=== PATIENT | female | born 1965 | race Caucasian/White ===

== ENCOUNTER → 2016-12-23 | Outpatient (CLI) | payer OTHER ==
--- NOTE | ~2016-12-23 | P ---
[facility] [place] [address] PROCEDURE REPORT Name: INGRID GÓMEZ Danyell Room #: REG RICHARD Galarza#: [id number] Admission: 12/23/16 Attend Phys: Torey Martinez Discharge: Date of : 67 Report #: [id number] THIS REPORT FOR: //name// CC: Torey Weller DO DATE OF SERVICE: 12/23/2016 PROCEDURE PERFORMED: Flexible sigmoidoscopy with tattoo. HISTORY OF PRESENT ILLNESS: The patient is a 51-year-old female who presented on 10/21/2016 for a routine screening colonoscopy. No family history of colon cancer. In the sigmoid colon at 40 cm from the anus, a large pedunculated polyp, which was approximately 2.5 cm was noted. This was removed by snare cautery, diffuse melanosis coli was also noted throughout the entire colon at that time. 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 No definitive lymphovascular space identified. The cauterized stalk margin was widely free of dysplasia, unremarkable mucosa present for 9 mm in the stalk. I had a long discussion with the patient at that time regarding the pathology findings. Since there was no invasion in the stalk, the plan was to bring her back and repeat a flexible sigmoidoscopy today for further evaluation. She denies any symptoms. DESCRIPTION OF PROCEDURE: The risks and benefits of the procedure were explained to the patient, those risks including but not limited to bleeding, perforation, the risk of sedation. She understood these risks and gave informed consent. Sedation was given using propofol per anesthesia. Next, a digital rectal exam was initially performed, which was normal. Next, using a standard Fujinon colonoscope, the scope was placed in the patient's anus and advanced under direct vision into the distal transverse colon area. Once again diffuse melanosis coli was noted throughout the exam today. Multiple diverticula were noted in the descending and sigmoid colon. The sigmoid colon was closely examined at 40 cm. There was one area which may be the previous polypectomy site as there was a slight amount of scarring and less melanosis in this area. No evidence of any polyp. I did proceed with tattooing the edges of this area. No other areas were seen in the sigmoid colon that would have reflected the previous polypectomy site. No other polyps were noted. Again, diverticulosis was noted. The rectal mucosa was normal. On retroflexion, internal hemorrhoids were noted. The scope was then withdrawn and the procedure terminated. The patient tolerated the procedure well. IMPRESSION: 1. Possible previous polypectomy site at 40 cm as there was a small scar noted [address] [address] PROCEDURE REPORT Name: INGRID GÓMEZ Danyell Room #: REG RICHARD Galarza#: [id number] Admission: 12/23/16 Attend Phys: Torey Martinez Discharge: Date of : 67 Report #: [id number] in this area. This area was tattooed. No residual polyp was noted. 2. Diverticulosis involving the descending and sigmoid colon. 3. Internal hemorrhoids. 4. Otherwise normal flexible sigmoidoscopy. RECOMMENDATIONS: We will have the patient be evaluated by oncology to have their opinion. Since the polyp was removed in its entirety and there was no invasion into the stalk, could consider a repeat colonoscopy in 1 year, but I would also like to have oncology recommendations as well. Thank you for allowing me to participate in her care. <ELECTRONICALLY SIGNED> By: Torey López MD 12/24/16 1145 [id number] Torey López MD /nt
== END | disposition home or self-care (01) ==
LOC: GI 08:13
DX: K57.30 Diverticulosis of large intestine without perforation or abscess without bleeding (principal); K64.8 Other hemorrhoids
CPT/HCPCS: 62110